=== PATIENT | male | born 1985 ===

== ENCOUNTER 2017-01-02 23:17 | Emergency (ER) ==
[~2017-01-02] VITALS: Ht 172.7 cm; Wt 90.9 kg
== END 2017-01-03 00:18 | disposition left against medical advice (07) ==
LOC: M ED 23:17
DX: S01.95XA Open bite of unspecified part of head, initial encounter (principal); W54.0XXA Bitten by dog, initial encounter; Y92.89 Other specified places as the place of occurrence of the external cause; Y93.89 Activity, other specified; Y99.8 Other external cause status; Z53.29 Procedure and treatment not carried out because of patient's decision for other reasons